=== PATIENT | female | born 1985 | race Two or more races ===

== ENCOUNTER 2017-04-19 05:33 | Emergency (ER) | payer OTHER, MEDICAID ==
[2017-04-19 05:40] VITALS: BP 131/89
--- NOTE | 2017-04-19 06:31 | ED Physician Documentation ---
History of Present Illness - Stated complaint Stated Complaint: L ANKLE PAIN - Chief complaint Chief Complaint: General - History obtained from History obtained from: Patient - History of Present Illness Timing: Yesterday Pain level now: 5 Improved by: rest Worsened by: movement, weight-bearing - Additonal information Additional information: c/o pain left foot and ankle; pain is worst at 1st metatarsal head, dorsal surface of midfoot, and medial>lateral ankle. Denies clearly recallable injury, although she was exercising recently and thinks she might have sustained a minor injury at that time. Denies h/o similar symptoms Review of Systems Constitutional: denies: Fever Skin: denies: Rash Musculoskeletal: reports: Extremity pain, Pain with weight bearing. 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 - Past Surgical History Past Surgical History: Yes General: Appendectomy - Present Medications Home Medications: Ambulatory Orders Medication Instructions Recorded Confirmed No Known Home Medications [No 10/27/12 04/19/17 Known Home Medications] - Allergies Allergies/Adverse Reactions: Allergies Allergy/AdvReac Type Severity Reaction Status Date / Time amoxicillin Allergy Rash Verified 04/19/17 05:39 hydrocodone Allergy Emesis Verified 04/19/17 05:39 - Social History Does the pt smoke?: No Smoking Status: Never smoker Does the pt drink ETOH?: No Does the pt have substance abuse?: No PD ED PE NORMAL - Vitals Vital signs reviewed: Yes - General General: Alert and oriented X 3, No acute distress, Well developed/nourished - Derm Derm: Normal color, Warm and dry, No rash - Extremities Extremities: Normal ROM s pain, No edema - Neuro Neuro: No motor deficit, No sensory deficit PD ED PE EXPANDED - Extremities Extremities: Tenderness (mild tenderness to palpation left foot plantar surface over 1st metatarsal head, as well as dorsal surface of midfoot and bilateral ankle immediately distal to malleoli (but no bony tenderness)). No: Limited ROM , Swelling, Bruising, Joint effusion, Red warm joint Results - Vitals Vitals: Vital Signs - 24 hr 04/19/17 05:37 Temperature 36.6 C Heart Rate 99 Respiratory 18 Rate Blood Pressure 131/89 H O2 Saturation 99 Oxygen O2 Source Room air PD MEDICAL DECISION MAKING - ED course Complexity details: considered differential, d/w patient ED course: no findings to suggest infectious or inflammatory etiology (such as gout; there is no increased warmth to touch, swelling, erythema). There is no obvious swelling. Emergent testing unlikely to yield a diagnosis or alter (conservative ) management recommendation. She is having difficulty weight-bearing, and thus provided crutches and a post-op boot, instructed to take ibuprofen as directed, follow-up with PMD, return if worse Departure - Departure Disposition: 01 Home, Self Care Clinical Impression: Foot pain, left Condition: Good Instructions: ED Sprain Foot Follow-Up: [facility] [Provider Group] [facility] [Provider Group] Discharge Date/Time: 04/19/17 07:54
== END 2017-04-19 07:54 | disposition home or self-care (01) ==
LOC: ED 05:33
DX: M79.672 Pain in left foot (principal)
CPT/HCPCS: 99282; 99283

== ENCOUNTER 2017-06-07 10:18 | Emergency (ER) | payer OTHER, MEDICAID ==
[2017-06-07 10:55] VITALS: BP 130/86
[2017-06-07] MEDS ORDERED: DEXAMETHASONE 10 MG/ML VIAL PO STA (12:04)
--- NOTE | 2017-06-07 12:05 | ED Physician Documentation ---
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 - Past Surgical History Past Surgical History: Yes General: Appendectomy - Present Medications Home Medications: Ambulatory Orders Medication Instructions Recorded Confirmed Azithromycin [Zithromax] 250 mg PO DAILY #6 tablet 06/07/17 - Allergies Allergies/Adverse Reactions: Allergies Allergy/AdvReac Type Severity Reaction Status Date / Time amoxicillin Allergy Rash Verified 04/19/17 05:39 hydrocodone Allergy Emesis Verified 04/19/17 05:39 - Social History Does the pt smoke?: No Smoking Status: Never smoker Does the pt drink ETOH?: No Does the pt have substance abuse?: No - Immunizations Immunizations are current?: No - POLST Patient has POLST: No PD ED PE NORMAL - Vitals Vital signs reviewed: Yes - HEENT HEENT: No: Pharynx benign (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 No: No adenopathy (ant no posterior) - Cardiac Cardiac: RRR - Respiratory Respiratory: No respiratory distress, Clear bilaterally - Neuro Neuro: Alert and oriented X 3 Results - Vitals Vitals: Vital Signs - 24 hr 06/07/17 10:52 Temperature 36.5 C Heart Rate 92 Respiratory 18 Rate Blood Pressure 130/86 H O2 Saturation 98 Oxygen O2 Source Room air - Labs Labs: Laboratory Tests 06/07/17 10:59 Group A Strep Rapid Negative PD MEDICAL DECISION MAKING - ED course ED course: meets centor criteria Departure - Departure Disposition: 01 Home, Self Care Clinical Impression: Pharyngitis Qualifiers: Pharyngitis/tonsillitis etiology: unspecified etiology Qualified Code(s): J02.9 - Acute pharyngitis, unspecified Condition: Good Instructions: ED Strep Pharyngitis Poss Prescriptions: Azithromycin [Zithromax] 250 mg PO DAILY #6 tablet Comments: The steroids given in the ER will help with the pain and swelling And I have prescribed antibiotics because this looks like strep Forms: Activity restrictions
[2017-06-07] MEDS ORDERED: CHERRY SYRUP 10 ML UDC PO ONE (12:16)
== END 2017-06-07 12:24 | disposition home or self-care (01) ==
LOC: ED 10:18
DX: J02.9 Acute pharyngitis, unspecified (principal)
CPT/HCPCS: 87070; 87430; 99283; A9270

== ENCOUNTER 2017-06-18 09:35 | Emergency (ER) | payer OTHER, MEDICAID ==
--- NOTE | 2017-06-18 12:13 | ED Physician Documentation ---
PD HPI HEENT - Stated complaint Stated Complaint: SORE THROAT - Chief complaint Chief Complaint: Heent - History obtained from History obtained from: Patient - History of Present Illness Timing - onset: How many weeks ago (1) Timing - details: Still present Location: Throat Associated symptoms: Cough. No: Fever Similar symptoms before: No: Has not had sx before Recently seen: Emergency Dept (Was seen in the emergency department 11 days ago and was treated with Zithromax for presumed strep throat.) - Additional information Additional information: The patient is a 31-year-old female who presents with sore throat for nearly 2 weeks' duration. She was seen here in the emergency department 11 days ago and was treated with Zithromax for presumed strep throat. Her strep screen was negative, but the swelling and exudates of her oropharynx were clinically impressive. The patient reports that the swelling has diminished since treatment with the antibiotics, but she continues to experience sore throat. She also reports cough. She denies fever or shortness of breath. Review of Systems Constitutional: denies: Fever Eyes: denies: Irritation Ears: denies: Ear pain Nose: denies: Congestion Throat: reports: Sore throat Cardiac: denies: Chest pain / pressure Respiratory: reports: Cough (nonproductive.). 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 - Past Surgical History Past Surgical History: Yes General: Appendectomy - Present Medications Home Medications: Ambulatory Orders Medication Instructions Recorded Confirmed cephALEXin [Cephalexin] 500 mg PO TID #20 tablet 06/18/17 - Allergies Allergies/Adverse Reactions: Allergies Allergy/AdvReac Type Severity Reaction Status Date / Time amoxicillin Allergy Rash Verified 04/19/17 05:39 hydrocodone Allergy Emesis Verified 04/19/17 05:39 - Social History Does the pt smoke?: No Smoking Status: Never smoker Does the pt drink ETOH?: No Does the pt have substance abuse?: No - Immunizations Immunizations are current?: Yes - POLST Patient has POLST: No PD ED PE NORMAL - Vitals Vital signs reviewed: Yes (initially hypertensive.) - General General: Alert and oriented X 3, Well developed/nourished - HEENT HEENT: Atraumatic, EOMI, Ears normal, Moist mucous membranes, Other (Oropharynx is mildly erythematous, without exudates or peritonsillar swelling.) - Neck Neck: Supple, no meningeal sign, No adenopathy - Cardiac Cardiac: RRR, No murmur - Respiratory Respiratory: No respiratory distress, Clear bilaterally - Abdomen Abdomen: Soft, Non tender - Back Back: No CVA TTP - Derm Derm: No rash - Extremities Extremities: No edema, No calf tenderness / cord - Neuro Neuro: Alert and oriented X 3, No motor deficit, No sensory deficit Results - Vitals Vitals: Oxygen O2 Source Room air - Labs Labs: Microbiology 06/18/17 10:10 Group A Strep Throat Culture - Final Throat MIXED OROPHARYNGEAL AMOR PRESENT. NO BETA STREP PRESENT IN CULTURE. Laboratory Tests 06/18/17 06/18/17 10:10 11:40 Infectious [place] Assay NEGATIVE Group A Strep Rapid Negative PD MEDICAL DECISION MAKING - ED course Complexity details: reviewed old records, reviewed results, re-evaluated patient , considered differential, d/w patient, d/w family ED course: The patient's presentation is most consistent with pharyngitis, etiology of which is uncertain. Strep screen is negative, as is Monospot. Her symptoms had initially improved after treatment with Zithromax starting 11 days ago. However she developed recurrent symptoms last night. There is no evidence to suggest peritonsillar abscess. I discussed with her the results of her workup, symptomatic treatment and outpatient follow-up, as well as potentially worrisome signs or symptoms that should prompt reevaluation in the emergency department. She is being discharged with prescription for cephalexin. Departure - Departure Disposition: 01 Home, Self Care Clinical Impression: Pharyngitis Qualifiers: Pharyngitis/tonsillitis etiology: unspecified etiology Qualified Code(s): J02.9 - Acute pharyngitis, unspecified Condition: Stable Instructions: ED Strep Pharyngitis Poss Follow-Up: [facility] [Provider Group] Prescriptions: cephALEXin [Cephalexin] 500 mg PO TID #20 tablet Comments: Gargle with cool liquids. Take cephalexin 3 times daily as prescribed. You can use ibuprofen, up to 800 mg 3 times daily for its anti-inflammatory effect. Follow-up with primary physician within 2 weeks. Call to schedule appointment. Return to the emergency department if you develop increasing difficulty swallowing, or otherwise worsening symptoms. Discharge Date/Time: 06/18/17 12:19
[2017-06-18 12:20] VITALS: BP 130/92
== END 2017-06-18 12:19 | disposition home or self-care (01) ==
LOC: ED 09:35
DX: J02.9 Acute pharyngitis, unspecified (principal)
CPT/HCPCS: 36415; 86308; 87070; 87430; 99283

== ENCOUNTER 2017-06-27 07:49 | Outpatient (CLI) | payer OTHER, MEDICAID ==
[2017-06-27 13:32] LABS: THYROID STIMULATING HORMONE 2.12 uIU/mL (0.34-5.60)
[2017-06-27 14:25] LABS: FOLATE > 49.60 ng/mL (5.90 - >24.8)
[2017-06-27 19:02] LABS: BASOPHILS # (AUTO) 0.1 10^3/uL (0.0-0.1); BASOPHILS % (AUTO) 1.3 %; EOSINOPHILS # (AUTO) 0.4 10^3/uL (0.0-0.7); EOSINOPHILS % (AUTO) 3.2 %; HGB - HEMOGLOBIN 11.4 g/dL (12.0-16.0); LYMPHOCYTES # (AUTO) 2.9 10^3/uL (1.5-3.5); LYMPHOCYTES % (AUTO) 25.9 %; MEAN CORPUSCULAR HEMOGLOBIN 25.6 pg (27.0-31.0); MEAN CORPUSCULAR HGB CONC 32.4 g/dL (32.0-36.0); MEAN CORPUSCULAR VOLUME 78.9 fL (81.0-99.0); MEAN PLATELET VOLUME 8.9 fL (7.9-10.8); MONOCYTES # (AUTO) 0.6 10^3/uL (0.0-1.0); MONOCYTES % (AUTO) 5.8 %; NEUTROPHILS # (AUTO) 7.1 10^3/uL (1.5-6.6); NEUTROPHILS % (AUTO) 63.8 %; PLT - PLATELET COUNT 422 10^3/uL (130-450); RED BLOOD COUNT 4.47 10^6/uL (4.20-5.40); RED CELL DISTRIBUTION WIDTH 14.4 % (12.0-15.0); WHITE BLOOD COUNT 11.1 x10^3/uL (4.8-10.8)
== END 2017-06-27 07:50 | disposition home or self-care (01) ==
LOC: LAB.N 07:49
PROVIDERS: ATTEND Nurse Practitioner
DX: R53.83 Other fatigue (principal)
CPT/HCPCS: 36415; 82607; 82746; 84443; 85025

== ENCOUNTER 2017-07-08 23:37 | Outpatient (CLI) | payer OTHER, MEDICAID ==
[2017-07-08 19:11] LABS: % IRON SATURATION 5 % (20-50); IRON 20 ug/dL (28-170); TOTAL IRON BINDING CAPACITY 378 ug/dL (250-450); TRANSFERRIN 270 mg/dL (192-382)
[2017-07-08 19:16] LABS: MEAN RETIC VALUE 99.5; RED BLOOD COUNT 4.53 10^6/uL (4.20-5.40)
== END 2017-07-08 23:38 | disposition home or self-care (01) ==
LOC: LAB.N 23:37
PROVIDERS: ATTEND Nurse Practitioner
DX: E55.9 Vitamin D deficiency, unspecified (principal); D50.9 Iron deficiency anemia, unspecified
CPT/HCPCS: 36415; 81599; 82306; 82728; 83021; 83540; 84466; 85014; 85018; 85044

== ENCOUNTER 2023-02-18 03:34 | Day surgery (SDC) | payer MEDICAID, OTHER ==
--- NOTE | 2023-02-18 03:37 | ED Physician Documentation ---
PD HPI ABD PAIN - Stated complaint Stated Complaint: ABD PX - History obtained from History obtained from: Patient - History of Present Illness Timing - onset: How many hours ago (12), Yesterday Timing - duration: Hours (12) Timing - details: Gradual onset, Still present (has increased significantly the past 2-3 hours, now with nausea and some vomiting.) Quality: Cramping, Aching, Pain Location: RUQ, Epigastric Radiation: Other (mid abdomen). No: Left flank, Right flank Improved by: Laying still. No: Vomiting Worsened by: Eating, Moving, Breathing, Palpation Associated symptoms: Nausea, Vomiting. No: Fever, Diarrhea, Constipation, D ysuria Similar symptoms before: Has not had sx before Recently seen: Not recently seen Review of Systems Constitutional: denies: Fever, Chills Nose: denies: Congestion Throat: denies: Sore throat Respiratory: denies: Cough GI: reports: Abdominal Pain, Nausea, Vomiting. denies: Abdominal Swelling, Diarrhea Musculoskeletal: denies: Back pain Neurologic: reports: Generalized weakness. 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 - Past Surgical History Past Surgical History: Yes General: Appendectomy - Present Medications Home Medications: Ambulatory Orders Medication Instructions Recorded Confirmed Dicyclomine [Bentyl] 10 mg PO QID PRN #15 cap 02/18/23 Ondansetron Odt [Zofran] 4 mg TL Q6H PRN #10 tablet 02/18/23 Oxycodone HCl/Acetaminophen 1 each PO Q6H PRN #14 tablet 02/18/23 [Percocet 5-325 mg Tablet] - Allergies Allergies/Adverse Reactions: Allergies Allergy/AdvReac Type Severity Reaction Status Date / Time amoxicillin Allergy Rash Verified 02/18/23 03:53 hydrocodone Allergy Emesis Verified 02/18/23 03:53 - Social History Does the pt smoke?: No Smoking Status: Never smoker Does the pt drink ETOH?: No Does the pt have substance abuse?: No - Immunizations Immunizations are current?: Yes - POLST Patient has POLST: No PD ED PE NORMAL - Vitals Vital signs reviewed: Yes - General General: Alert and oriented X 3, Well developed/nourished - Neck Neck: Supple, no meningeal sign, No adenopathy - Cardiac Cardiac: RRR, No murmur - Respiratory Respiratory: No respiratory distress, Clear bilaterally - Abdomen Abdomen: Soft, Non distended, Other (very tender RUQ with guarding and some percussion tenderness. Positive rebound in RUQ and mid abd. ). No: Normal bowel sounds (decreased) - Female Female : Deferred - Rectal Rectal: Deferred - Back Back: No CVA TTP - Derm Derm: Normal color, Warm and dry - Extremities Extremities: Normal ROM s pain, No edema - Neuro Neuro: Alert and oriented X 3, No motor deficit Results - Vitals Vitals: Vital Signs - 24 hr 02/18/23 02/18/23 03:40 06:00 Temperature 36.9 C Heart Rate 91 58 L Respiratory 16 16 Rate Blood Pressure 161/111 H 157/86 H O2 Saturation 99 97 Oxygen O2 Source Room air - Labs Labs: Laboratory Tests 02/18/23 02/18/23 02/18/23 04:02 04:02 04:30 WBC 8.2 RBC 4.65 Hgb 11.6 L Hct 38.0 MCV 81.7 MCH 24.9 L MCHC 30.5 L RDW 13.7 Plt Count 407 MPV 10.5 Neut # (Auto) 4.8 Lymph # (Auto) 2.5 [place] # (Auto) 0.7 Eos # (Auto) 0.2 Baso # (Auto) 0.1 Absolute Nucleated RBC 0.00 Nucleated RBC % 0.0 Sodium Potassium Chloride Carbon Dioxide Anion Gap BUN Creatinine Estimated GFR (MDRD) Glucose Calcium Total Bilirubin AST ALT Alkaline Phosphatase Total Protein Albumin Globulin Albumin/Globulin Ratio Lipase Urine Color YELLOW Urine Clarity CLEAR Urine pH 5.5 Ur Specific Wiggins >=1.030 H Urine Protein NEGATIVE Urine Glucose (UA) NEGATIVE Urine Ketones NEGATIVE Urine Occult Blood SMALL H Urine Nitrite NEGATIVE Urine Bilirubin NEGATIVE Urine Urobilinogen 0.2 (NORMAL) Ur Leukocyte Esterase TRACE H Urine RBC 6-10 H Urine WBC 0-3 Ur Squamous Epith Cells MANY Squamous H Urine Bacteria Rare Ur Microscopic Review INDICATED Urine Culture Comments NOT INDICATED Urine HCG, Qual NEGATIVE 02/18/23 04:30 WBC RBC Hgb Hct MCV MCH MCHC RDW Plt Count MPV Neut # (Auto) Lymph # (Auto) [place] # (Auto) Eos # (Auto) Baso # (Auto) Absolute Nucleated RBC Nucleated RBC % Sodium 138 Potassium 4.2 Chloride 107 Carbon Dioxide 22 Anion Gap 9.0 BUN 15 Creatinine 0.8 Estimated GFR (MDRD) 80 L Glucose 102 Calcium 10.0 Total Bilirubin 0.4 AST 15 ALT 16 Alkaline Phosphatase 73 Total Protein 6.8 Albumin 4.2 Globulin 2.6 Albumin/Globulin Ratio 1.6 Lipase 44 Urine Color Urine Clarity Urine pH Ur Specific [place] Urine Protein Urine Glucose (UA) Urine Ketones Urine Occult Blood Urine Nitrite Urine Bilirubin Urine Urobilinogen Ur Leukocyte Esterase Urine RBC Urine WBC Ur Squamous Epith Cells Urine Bacteria Ur Microscopic Review Urine Culture Comments Urine HCG, Qual - Rads (name of study) abd CT Relevant Findings:: Prelim report reviewed, EMP independent interpretation of test (gallstone large in GB neck with wall thickening and GB distension, c/w acute cholecystitis.) PD Medical Decision Making - ED course Complexity details: reviewed results (To my eye the CT is showing a apparent large gallstone near the neck with some dilation of the gallbladder and possible wall thickening. No pericholecystic fluid. Appendix is absent. No other obvious acute abnormality. CT result is still pending.), considered differential (Onset with gradual worsening to now severe right upper quadrant pain with nausea and vomiting. Location is suspicious for gallbladder. Also consider pancreatic or liver. Less likely kidney related like stone.), d/w patient ED course: The patient had a first-time episode of right upper quadrant severe pain associated with nausea and vomiting. She was markedly tender in the right upper quadrant with guarding and percussion tenderness. She is given IV fluids along with medications to include Zofran, Toradol, hydromorphone. This did provide a reasonable improvement in her pain. She is more comfortable at this time. Subsequently while awaiting labs and imaging, the pain did start increasing a bit again. She is given a repeat dose of hydromorphone. Labs are good with a normal white count and her LFTs and lipase are normal. Basic electrolytes are normal as well. Recheck of the abdomen was showing still tenderness in the right upper quadrant but at this point now no percussion or rebound. Still some local guarding. At this point were awaiting the radiology report for verification. Her pain is improved enough that it may be medication and follow-up with surgery. However based on the report we can talk with one of the surgeons in discuss follow-up versus evaluation here. I wrote discharge instructions in case it went that way, but certainly may be an acute cholecystitis with surgical option. Departure - Departure Clinical Impression: RUQ abdominal pain, Biliary colic, Acute cholecystitis Condition: Stable Record reviewed to determine appropriate education?: Yes Instructions: ED Gallstone W Biliary Colic Follow-Up: Mayank Hart MD [Provider Admit Priv/Credential] - Colby Sullivan MD [Provider Admit Priv/Credential] - Prescriptions: Dicyclomine [Bentyl] 10 mg PO QID PRN #15 cap PRN Reason: Abdominal Pain Oxycodone HCl/Acetaminophen [Percocet 5-325 mg Tablet] 1 each PO Q6H PRN #14 tablet PRN Reason: pain Ondansetron Odt [Zofran] 4 mg TL Q6H PRN #10 tablet PRN Reason: Nausea / Vomiting Comments: This does look apparently caused by gallstone with gallbladder spasm and some inflammation. Small frequent fluids and bland food and nonfatty foods. Follow-up with general surgery to discuss further treatment options. I provided to have the surgery clinic offices and either are reasonable to follow-up with. I wrote prescriptions for ondansetron to use for nausea. Dicyclomine/Bentyl as an antispasmodic that can be used to help with gallbladder spasms as well. Add Tylenol if needed for pains and oxycodone if needed for worse pain. I sent these prescriptions to your preferred pharmacy, [facility]. Return to the ER as needed. I am prescribing a short course of narcotic pain medication for you. These are potentially dangerous and addictive medications that should be used carefully. These medications may constipate you. Take an [id number] stool softener such as docusate twice daily with plenty of water while taking these medications. If you go 24 hours without a bowel movement, take [id number] MiraLAX, per package instructions. Do not drink or drive while taking these medications. If you received narcotic or sedating medications while in the emergency department do not drive for 24 hours. Store this medication in a safe, secure place and out of reach of children. It is a violation of federal law to give or sell this medication to another person or to use in a manner other than prescribed. The ED will not refill narcotic prescriptions, including prescriptions lost or stolen. You can dispose of unwanted medications at the [facility]'s office or at several pharmacies such as [facility].
[2023-02-18 04:08] LABS: BILIRUBIN,URINE NEGATIVE (NEGATIVE); GLUCOSE, URINE (UA) NEGATIVE (NEGATIVE); KETONES,URINE (UA) NEGATIVE (NEGATIVE); LEUKOCYTE ESTERASE, URINE TRACE (NEGATIVE); NITRITE,URINE NEGATIVE (NEGATIVE); OCCULT BLOOD,URINE SMALL (NEGATIVE); PH,URINE 5.5 PH (5.0-7.5); PROTEIN,URINE NEGATIVE (NEGATIVE); UROBILINOGEN,URINE 0.2 (NORMAL) E.U./dL (NORMAL)
[2023-02-18] MEDS ORDERED: ONDANSETRON 4 MG/2 ML VIAL IVP STA (04:11)
[2023-02-18] MEDS ORDERED: KETOROLAC 15 MG/ML VIAL IVP STA (04:11)
[2023-02-18] MEDS ORDERED: HYDROmorphone 1 MG/ML CARPUJECT IVP STA ×2 (04:11→06:49)
[2023-02-18] MEDS ORDERED: SODIUM CHLORIDE 0.9% 1,000 ML IV STA (04:11)
[2023-02-18 04:22] LABS: CLARITY,URINE CLEAR (CLEAR); HCG UR QUAL NEGATIVE; SQUAMOUS EPITHELIAL CELL,UR MANY Squamous (<= Few); WBC,URINE 0-3 /HPF (0-5)
[2023-02-18 04:23] LABS: BACTERIA,URINE Rare /HPF (None Seen)
[2023-02-18 05:02] LABS: BASOPHILS # (AUTO) 0.1 10^3/uL (0.0-0.1); BASOPHILS % (AUTO) 0.9 %; EOSINOPHILS # (AUTO) 0.2 10^3/uL (0.0-0.7); HGB - HEMOGLOBIN 11.6 g/dL (12.0-16.0); LYMPHOCYTES # (AUTO) 2.5 10^3/uL (1.5-3.5); MEAN CORPUSCULAR HEMOGLOBIN 24.9 pg (27.0-31.0); MEAN CORPUSCULAR HGB CONC 30.5 g/dL (32.0-36.0); MEAN CORPUSCULAR VOLUME 81.7 fL (81.0-99.0); MEAN PLATELET VOLUME 10.5 fL (7.9-10.8); MONOCYTES # (AUTO) 0.7 10^3/uL (0.0-1.0); MONOCYTES % (AUTO) 7.9 %; NEUTROPHILS # (AUTO) 4.8 10^3/uL (1.5-6.6); NEUTROPHILS % (AUTO) 58.7 %; PLT - PLATELET COUNT 407 10^3/uL (130-450); RED BLOOD COUNT 4.65 10^6/uL (4.20-5.40); RED CELL DISTRIBUTION WIDTH 13.7 % (12.0-15.0); WHITE BLOOD COUNT 8.2 x10^3/uL (4.8-10.8)
[2023-02-18 05:28] LABS: ALBUMIN 4.2 g/dL (3.2-5.5)
[2023-02-18 05:55] LABS: ALBUMIN/GLOBULIN RATIO 1.6 (1.0-2.2); BILIRUBIN,TOTAL 0.4 mg/dL (0.2-1.0); CREATININE 0.8 mg/dL (0.6-1.3); POTASSIUM 4.2 mmol/L (3.5-4.5); TOTAL PROTEIN 6.8 g/dL (6.4-8.9)
[2023-02-18] MEDS ORDERED: iohexoL-300 100 ML VIAL IVP ONE (06:31)
--- NOTE | 2023-02-18 08:20 | CT Report ---
PROCEDURE: ABDOMEN/PELVIS W INDICATIONS: upper abd pain past 12 hours. CONTRAST: 100 ML OMNI 300 TECHNIQUE: After the administration of IV contrast, 5 mm thick sections acquired from the diaphragms to the symp hysis. 5 mm thick coronal and sagittal reformats were acquired. For radiation dose reduction, the f ollowing was used: automated exposure control, adjustment of mA and/or kV according to patient size. COMPARISON: None. FINDINGS: Image quality: Excellent. Lung bases and heart: Bibasilar atelectasis. Liver: Moderately enlarged. Moderate hepatic steatosis. No solid mass. Gallbladder and biliary tree: There is a gallstone in the gallbladder. There is mild pericholecystic stranding. No biliary dilation. Spleen: No splenomegaly. Pancreas: No pancreatic ductal dilation. Adrenals: No adrenal nodule. Kidneys and ureters: No hydronephrosis. No renal cystic lesion which requires follow up. No solid mas s. Bowel and peritoneum: No bowel distension. No pathologic free fluid. The terminal ileum appears mildl y thickened, likely caused by artifact due to lack of contrast distention. Appendix is not identified . No CT findings to suggest acute appendicitis. There is a moderate amount stool in colon. Lymph nodes: No central or retroperitoneal adenopathy. Vessels: No infrarenal aortic aneurysm. PELVIS Reproductive organs: There is a 3.7 x 4.7 cm mass in the right adnexa containing fat and calcificatio n, compatible with teratoma. Uterus and left ovary are unremarkable no pathological free fluid in pel vis. Bladder: No abnormal wall thickening, accounting for underdistension. Pelvic lymph nodes: No pelvic adenopathy by size criteria. Bones: No aggressive osseous abnormality. Other: No significant ventral or inguinal hernia. IMPRESSION: 1. Cholelithiasis. There is mild pericholecystic stranding, suspicious for acute cholecystitis. Recom mend abdominal ultrasound or HIDA scan for further evaluation. 2. Mild hepatomegaly and moderate steatosis. 3. A 3.7 x 4.7 cm ovarian mass in the right ovary containing fat and calcification, compatible with a teratoma. Reviewed by: Scott Horton MD on 02/18/2023 8:18 AM PST Approved by: Scott Horton MD on 02/18/2023 8:18 AM PST Station ID: [id number]
--- NOTE | 2023-02-18 08:28 | Ultrasound Report ---
PROCEDURE: Abdomen Limited INDICATIONS: RUQ PAIN/POSS GENARO TECHNIQUE: Real-time focused scanning was performed of the abdomen, with image documentation. COMPARISONS: CT of abdomen and pelvis, 02/18/2023. FINDINGS: Liver: Liver is normal in size and demonstrates increased echotexture. Portal vein is patent with h epatopedal flow. Gallbladder: There is a gallstone measuring 2 cm in the gallbladder neck. Mild gallbladder wall thick ening. No pericholecystic collection or sonographic Tierney sign. Biliary ducts: Intrahepatic bile ducts are non-dilated. Extrahepatic bile duct caliber measures 6 m m. Normal is 6-7 mm or less in diameter, or 10 mm or less post-cholecystectomy. Pancreas: Visualized portions of the pancreas are sonographically normal. Right kidney: Normal in size and echotexture. Right kidney measures 9.8 cm long. No hydronephrosis o r nephrolithiasis. No solid masses. No complex renal cystic lesions which require follow-up. Aorta: Visualized aorta is normal in caliber at less than 3 cm. IVC: Intrahepatic inferior vena cava is patent. Miscellaneous: No free abdominal fluid. IMPRESSION: 1. Cholelithiasis. There is mild gallbladder wall thickening suspicious for early acute cholecystitis . 2. Liver demonstrates increased echotexture consistent with hepatic fatty infiltration. Other hepatoc ellular disease could have a similar sonographic appearance. Please correlate with liver function tran ts. Reviewed by: Scott Horton MD on 02/18/2023 8:27 AM PST Approved by: Scott Horton MD on 02/18/2023 8:27 AM PST Station ID: [id number]
[2023-02-18] MEDS ORDERED: cefTRIAXone 2 GM in SODIUM CHLORIDE 0.9% MINIBAG 100 ML IV STA (08:47)
[2023-02-18] MEDS ORDERED: metroNIDAZOLE 500 MG/100 ML 500 MG/100 ML BAG IV SCH ×2 (09:00→11:00)
[2023-02-18] MEDS ORDERED: ONDANSETRON 4 MG/2 ML VIAL IVP PRN ×3 (10:29→14:54)
--- NOTE | 2023-02-18 10:31 | ED Physician Documentation ---
ED Addendum - Addendum Addendum: 02/18/23 10:29 Care of patient signed out to me by overnight Dr. Miranda. Patient reassessed, resting comfortably, pain control, however she did receive numerous doses of narcotic pain medications. CT is concerning for cholecystitis. Call placed to Dr. Sullivan of general surgery, who requested an ultrasound for further assessment. Ultrasound performed, findings concerning for possible acute cholecystitis. Dr. Sullivan requested PO challenge with clear fluids as with normal labs and reassuring abdominal exam this could possibly be biliary colic amenable to outpatient removal. Patient did agree to p.o. challenge, however after less than half a cup of apple juice her pain returned and she felt very nauseous. Decision made to take patient to the operating room for cholecystectomy. Rocephin/flagyl ordered.
[2023-02-18] MEDS ORDERED: ceFAZolin 2 GM VIAL IVP SCH (11:00)
[2023-02-18] MEDS ORDERED: SODIUM CHLORIDE 0.9% 1,000 ML IV SCH (11:00)
--- NOTE | 2023-02-18 11:19 | HISTORY & PHYSICAL EXAMINATION ---
History and Physical - History and Physical Paper H&P on chart 37 y/o F with acute onset of epigastric discomfort, nausea after eating pizza yesterday. Patient awoke from sleep with severe upper abdominal pain in a band like distribution at 0200, prompting her to come to the ED. +nausea, no vomiting. No f/c. No history of similar pain. Was feeling somewhat better this AM, but nausea and pain increased with PO trial. CT, sono equivocal, with mild wall thickening, no PCF, no impacted stone labs wnl Gen: NAD CV: RRR Pulm: non labored, on RA abd: obese, soft, diffuse, mild ttp, moderate epigastric tenderness with deep palpation. No r/g. Ext: no c/c/e Given patient's worsened symptoms after PO trial, I recommended we proceed with surgery. I discussed the natural history of acute cholecystitis with the patient. We also discussed the risks, benefits, and alternatives of laparoscopic cholecystectomy with cholangiogram and possible open procedure. We discussed surgical risks including bleeding, infection, and damage to surrounding structures. We also discussed the intraoperative and postoperative plan including the possible need for drain placement and possibility of an open procedure. The patient voiced understanding, her questions were answered, and she wished to proceed with surgery. A consent was signed by the patient. - npo until after surgery - preop meds, abx ordered (will do test dose with ancef) - likely discharge to home later today.
[2023-02-18] MEDS ORDERED: LIDOCAINE 1%-EPI 1:100000 20 ML MDV ONE (12:00)
[2023-02-18] MEDS ORDERED: iohexoL-240 10 ML VIAL IVP ONE (12:01)
[2023-02-18] MEDS ORDERED: BUPIVACAINE 0.5% PF 10 ML VIAL ONE (12:01)
--- NOTE | 2023-02-18 12:23 | ANESTHESIA ---
Pre-Anesthesia VS, & Labs - Diagnosis acute cholecystitis - Procedure laparoscopic cholecystectomy Vital Signs: Temp Pulse Resp BP Pulse Ox O2 Flow Rate 36.7 C 83 14 138/87 H 98 02/18/23 10:00 02/18/23 10:00 02/18/23 10:00 02/18/23 10:00 02/18/23 10:00 Height: 5 ft 6 in Weight (kg): 104.326 kg Body Mass Index: 37.1 BMI Classification: Obese - NPO Last Fluid Intake: 2oz apple juice@0930 Last Food Intake: >12 hours - Is Patient ?: No - Lab Results Current Lab Results: Laboratory Tests 02/18/23 04:30: Sodium 138, Potassium 4.2, Chloride 107, Carbon Dioxide 22, Anion Gap 9.0, BUN 15, Creatinine 0.8, Estimated GFR (MDRD) 80 L, Glucose 102, Calcium 10.0, Total Bilirubin 0.4, AST 15, ALT 16, Alkaline Phosphatase 73, Total Protein 6.8, Albumin 4.2, Globulin 2.6, Albumin/Globulin Ratio 1.6, Lipase 44 02/18/23 04:30: WBC 8.2, RBC 4.65, Hgb 11.6 L, Hct 38.0, MCV 81.7, MCH 24.9 L, MCHC 30.5 L, RDW 13.7, Plt Count 407, MPV 10.5, Neut # (Auto) 4.8, Lymph # (Auto) 2.5, Blount # (Auto) 0.7, Eos # (Auto) 0.2, Baso # (Auto) 0.1, Absolute Nucleated RBC 0.00, Nucleated RBC % 0.0 Lab results reviewed: Yes Fish Bones: 02/18/23 04:30 02/18/23 04:30 Home Medications and Allergies Active Medications Cefazolin Sodium (Cefazolin 2 Gm Vial) 2 gm IVP ONCE BAKARI Stop: 02/18/23 14:00 Sodium Chloride (Normal Saline 0.9%) 1,000 mls @ 125 mls/hr IV .Q8H BAKARI Last Admin: 02/18/23 10:37 Dose: 125 mls/hr Metronidazole (Flagyl 500 Mg/100 Ml) 500 mg in 100 mls @ 100 mls/hr IV ONCE BAKARI Stop: 02/18/23 14:00 Last Infusion: 02/18/23 11:47 Dose: Infused Ondansetron HCl (Ondansetron 4 Mg/2 Ml Vial) 4 mg IVP Q6HR PRN PRN Reason: Nausea / Vomiting Allergies/Adverse Reactions: Allergies Allergy/AdvReac Type Severity Reaction Status Date / Time amoxicillin Allergy Rash Verified 02/18/23 03:53 hydrocodone Allergy Emesis Verified 02/18/23 03:53 Anes History & Medical History - Anesthetic History Anesthesia Complications: reports: No previous complications, Slow wake-up (with appendectomy and oopherectomy) Family history of Anesthesia Complications: Denies Family history of Malignant Hyperthermia: Denies - Medical History Cardiovascular: reports: None Pulmonary: reports: Asthma (rare albuterol inhaler use, no daily inhaler) Gastrointestinal: reports: Other (r upper quad adb pain, current) Neuro: reports: None Endocrine/Autoimmune: reports: None Smoking Status: Never smoker Psychosocial: reports: No issues indicated, Alcohol (rare) - Surgical History General: reports: Appendectomy Eyes Ears Nose Throat (EENT): reports: Tonsil/Adenoidectomy Gynecologic: reports: Oophrectomy Exam General: Alert, Oriented x3, Cooperative Dental: WNL Mouth Opening: Greater than 4 Fingerbreadths Neck Mobility: Normal Mallampati classification: I Thyromental Distance: 4-6 cm Respiratory: Lungs clear, Normal breath sounds, No respiratory distress Cardiovascular: Regular rate Neurological: Normal speech Mental/Cognitive Status: Alert/Oriented X3, Normal for patient Cognitive Status: Within normal limits Plan Anesthesia Type: General Consent for Procedure(s) Verified and Reviewed: Yes Code Status: Attempt Resuscitation ASA classification: 2-Mild systemic disease Is this case an emergency?: Yes
[2023-02-18] MEDS ORDERED: METOCLOPRAMIDE 10 MG/2 ML VIAL IVP PRN (12:24)
[2023-02-18] MEDS ORDERED: HYDROmorphone 0.5 MG/0.5 ML SYRINGE IVP PRN ×2 (12:24→14:54)
[2023-02-18] MEDS ORDERED: ePHEDrine 50 MG/ML VIAL IVP PRN (12:24)
[2023-02-18] MEDS ORDERED: ATROPINE ABBOJECT 1 MG/10 ML SYRINGE IVP PRN (12:24)
[2023-02-18] MEDS ORDERED: NALOXONE 0.4 MG/ML VIAL IVP PRN (12:24)
[2023-02-18] MEDS ORDERED: MORPHINE 2 MG/ML CARPUJECT IVP PRN (12:24)
[2023-02-18] MEDS ORDERED: fentaNYL 100 MCG/2 ML VIAL IVP PRN (12:24)
[2023-02-18] MEDS ORDERED: fentaNYL 100 MCG/2 ML VIAL ONE ×2 (12:42→13:59)
[2023-02-18] MEDS ORDERED: MIDAZOLAM 2 MG/2 ML VIAL ONE (12:42)
[2023-02-18] MEDS ORDERED: ROCURONIUM 50 MG/5 ML VIAL ONE (12:43)
[2023-02-18] MEDS ORDERED: LIDOCAINE-PF 2% 10 ML AMP SUBQ ONE (12:43)
[2023-02-18] MEDS ORDERED: PROPOFOL 200 MG/20 ML VIAL IVP ONE ×2 (12:43→14:59)
[2023-02-18] MEDS ORDERED: LACTATED RINGERS 1,000 ML IV SCH (13:00)
[2023-02-18] MEDS ORDERED: LIDOCAINE 1%-EPI 1:100000 20 ML MDV SUBQ ONE (13:13)
[2023-02-18] MEDS ORDERED: BUPIVACAINE 0.5% PF 10 ML VIAL IM ONE (13:13)
[2023-02-18] MEDS ORDERED: ceFAZolin 1 GM VIAL ONE (13:25)
[2023-02-18] MEDS ORDERED: DEXAMETHASONE 4 MG/ML VIAL ONE (13:33)
[2023-02-18] MEDS ORDERED: ONDANSETRON 4 MG/2 ML VIAL ONE ×2 (13:33→15:44)
[2023-02-18] MEDS ORDERED: metroNIDAZOLE 500 MG/100 ML 500 MG/100 ML BAG ONE (13:53)
[2023-02-18] MEDS ORDERED: SUGAMMADEX 200 MG/2 ML VIAL IVP ONE (14:47)
[2023-02-18] MEDS ORDERED: KETOROLAC 30 MG/ML VIAL ONE (14:48)
[2023-02-18] MEDS ORDERED: ACETAMINOPHEN 325 MG TABLET PO PRN (14:54)
[2023-02-18] MEDS ORDERED: oxyCODONE 5 MG TABLET PO PRN (14:54)
--- NOTE | 2023-02-18 14:58 | OPERATIVE REPORT ---
Operative Report - General Procedure Date: 02/18/23 Planned Procedure: Laparoscopic cholecystectomy with cholangiogram, possible open Pre-Op Diagnosis: Acute cholecystitis Procedure Performed: Laparoscopic cholecystectomy with Attempted cholangiogram Post Op Diagnosis: Cholelithiasis, early acute cholecystitis - Procedure Note Primary Surgeon: Dr. Norah Sullivan Anesthesia Provider: Oralia Ambriz CRNA Anesthesia Technique: General ET tube, Local Pathology: Gallbladder and contents Estimated Blood Loss (mL): 20 Indications: Patient has had about 6 hours of continuous right upper quadrant abdominal pain. Her labs are within normal limits, and her imaging is equivocal. On exam, she has some mild persistent right upper quadrant and epigastric pain. On p.o. challenge, her pain worsened. At this time we discussed cholecystectomy. I discussed the natural history of acute cholecystitis with the patient. We also discussed the risks, benefits, and alternatives of laparoscopic cholecystectomy with cholangiogram and possible open procedure. We discussed surgical risks including bleeding, infection, and damage to surrounding structures. We also discussed the intraoperative and postoperative plan including the possible need for drain placement and possibility of an open procedure. The patient voiced understanding, her questions were answered, and she wished to proceed with surgery. A consent was signed by the patient. Findings: 1.Normal anatomy 2. Cholelithiasis 3. Early acute cholecystitis Complications: None - Other Other Information/Narrative: The patient was brought to the operative suite and placed in the supine position. General endotracheal anesthesia was induced. Preoperative antibiotics were given. ERAS protocol was not followed due to patient's nausea. A preop surgical timeout was performed. Local anesthetic was injected into the skin and subcutaneous tissues just superior to the umbilicus. An 11 blade scalpel was used to make a 5 mm transverse skin incision in this location. Next, a hemostat was used to spread the tissues down to the level of the fascia and a Leonid clamp was used to grasp and elevate the umbilical stalk. A Varess needle was used to gain access to the peritoneal space. Low flow insufflation revealed low pressures and then high flow insufflation was undertaken to 15 mmHg. Next, the Varess needle was removed and a 5 mm laparoscopic port was inserted in this location. Through this port, a 5 mm 30 degree laparoscope was inserted. On inspection of the abdomen no injury was caused on entry. Next, the patient was placed in reverse Trendelenburg and rotated slightly to the left. Two 5 mm ports were inserted in the right upper quadrant, one in the anterior axillary line and the other in the midclavicular line. Also, a 12 mm port was inserted in the subxiphoid region. All ports were placed by first anesthetizing the skin and subcutaneous tissues with local anesthetic, then by making an appropriate length incision with an 11 blade scalpel, and finally by placing the port under direct laparoscopic vision. Once the ports were in place, a ratcheted, toothed grasper was used to elevate the fundus of the gallbladder toward the patient's right shoulder. There were loose adhesions in the right upper quadrant between the omentum and the gallbladder. These were taken down with blunt and sharp dissection with electrocautery. Next, the peritoneum was incised starting at the hilum of the gallbladder and working toward the fundus along the gallbladder liver interface on the medial and lateral aspects of the gallbladder. Next, attention was returned to the hilum of the gallbladder. The alveolar tissues in this region were taken down with blunt and sharp dissection with electrocautery taking great care not to cauterize though any tissue I could not easily see through. Two ductal structures were isolated and skeletonized such that each ductal structure could be visualized with liver present on either side. The cystic plate was also developed. At this time, it was felt that a critical view of safety had been obtained. Next, a clip was placed distally, that is toward the gallbladder, on the cystic duct and just proximal to this a ductotomy was performed. Multiple attempts were made to pass A cholangiogram catheter into the duct. However the duct was too small to do so, even with attempts using a smaller catheter. At this time, due to the fact that the patient had normal labs preoperatively, and normal anatomy intraoperatively, I elected to abandon the cholangiogram. Two clips were placed proximally on the cystic duct. The cystic duct and cystic artery were divided using laparoscopic scissors between the clips. Next the gallbladder was dissected off of the liver bed. Once it was completely freed, the gallbladder was placed in an Endo Catch bag and removed through the epigastric port. The epigastric port was replaced and suction and irrigation were used to remove any fluid from the right upper quadrant. This was done until the fluid returned was clear. Next, quarter percent Marcaine with epinephrine in the amount of 10 mL was infused into the right upper quadrant along the liver diaphragm interface to reduce to postoperative pain. Next, a laparoscopic fascial closure device was used to place a single interrupted 0 Vicryl suture at the epigastric port. This reapproximated the fascia well. The remaining ports were removed under direct laparoscopic vision and the abdomen was deflated. Next, the skin edges were reapproximated with 4-0 Monocryl in an interrupted subcuticular fashion. A sterile dressing of skin glue was placed. The patient tolerated the procedure well. The patient was extubated in the operating room and transferred to the recovery room in stable condition. There were no complications.
[2023-02-18] MEDS ORDERED: IBUPROFEN 600 MG TABLET PO SCH (15:00)
[2023-02-18] MEDS ORDERED: LACTATED RINGERS 1,000 ML IV ONE (15:22)
[2023-02-18 15:35] VITALS: O2SAT 94
[2023-02-18] MEDS ORDERED: ACETAMINOPHEN 325 MG TABLET PO ONE (16:30)
[2023-02-18 16:31] VITALS: BP 146/96
--- NOTE | 2023-02-18 16:35 | ANESTHESIA POST OP EVALUATION ---
Anesthesia Post Eval - Post Anesthesia Eval Vitals: Last Vital Signs Temp 36.0 C L 02/18/23 16:15 Pulse 83 02/18/23 16:15 Resp 16 02/18/23 16:15 BP 146/96 H 02/18/23 16:15 Pulse Ox 94 02/18/23 16:15 O2 Flow Rate CV Function Including HR & BP: Stable Pain Control: Satisfactory Nausea & Vomiting: Negative Mental Status: Baseline Respiratory Status: Airway Patent Hydration Status: Satisfactory Anesthesia Complications: None
== END 2023-02-18 10:35 | disposition home or self-care (01) ==
LOC: ED 03:34 → SDS 10:34
PROVIDERS: ATTEND Surgery
PROC: 0FT44ZZ Resection of Gallbladder, Percutaneous Endoscopic Approach (ICD-10-PCS; principal; 2023-02-18 14:15)
DX: K80.00 Calculus of gallbladder with acute cholecystitis without obstruction (principal); K80.12 Calculus of gallbladder with acute and chronic cholecystitis without obstruction; E66.9 Obesity, unspecified; Z68.37 Body mass index [BMI] 37.0-37.9, adult; J45.909 Unspecified asthma, uncomplicated
CPT/HCPCS: 36415; 47562; 74177; 76705; 80053; 81001; 81025; 83690; 85025; 96365; 96375; 96376; 99285; A9270; C1758; J1170; J7120; Q9966; Q9967; 81003; 87086

== ENCOUNTER 2023-11-28 08:21 | Outpatient (CLI) | payer MEDICAID ==
[2023-11-28 12:17] LABS: BASOPHILS # (AUTO) 0.1 10^3/uL (0.0-0.1); BASOPHILS % (AUTO) 0.7 %; EOSINOPHILS # (AUTO) 0.2 10^3/uL (0.0-0.7); EOSINOPHILS % (AUTO) 2.2 %; HCT - HEMATOCRIT 40.3 % (37.0-47.0); HGB - HEMOGLOBIN 12.9 g/dL (12.0-16.0); LYMPHOCYTES # (AUTO) 2.2 10^3/uL (1.5-3.5); LYMPHOCYTES % (AUTO) 25.6 %; MEAN CORPUSCULAR HEMOGLOBIN 27.3 pg (27.0-31.0); MEAN CORPUSCULAR VOLUME 85.4 fL (81.0-99.0); MEAN PLATELET VOLUME 11.1 fL (7.9-10.8); MONOCYTES # (AUTO) 0.5 10^3/uL (0.0-1.0); MONOCYTES % (AUTO) 6.2 %; NEUTROPHILS # (AUTO) 5.6 10^3/uL (1.5-6.6); NEUTROPHILS % (AUTO) 65.2 %; PLT - PLATELET COUNT 427 10^3/uL (130-450); RED BLOOD COUNT 4.72 10^6/uL (4.20-5.40); RED CELL DISTRIBUTION WIDTH 13.3 % (12.0-15.0); WHITE BLOOD COUNT 8.6 x10^3/uL (4.8-10.8)
[2023-11-28 12:51] LABS: ALBUMIN 4.2 g/dL (3.2-5.5); ALBUMIN/GLOBULIN RATIO 1.3 (1.0-2.2); ALKALINE PHOSPHATASE 59 IU/L (42-121); ALT ALANINE AMINOTRANSFERASE 11 IU/L (10-60); AST ASPARTATE AMINOTRANSFERASE 11 IU/L (10-42); BILIRUBIN,TOTAL 0.7 mg/dL (0.2-1.0); BUN - BLOOD UREA NITROGEN 11 mg/dL (6-20); CALCIUM 9.1 mg/dL (8.5-10.3); CARBON DIOXIDE - CO2 21 mmol/L (21-32); CHLORIDE 110 mmol/L (101-111); CHOL/HDL RATIO 4.2 (<4.4); CHOLESTEROL 154 mg/dL; CREATININE 0.7 mg/dL (0.6-1.3); GFR - MDRD 93 (>89); GLUCOSE 106 mg/dL (74-104); HDL CHOLESTEROL 37 mg/dL; LDL CHOLESTEROL,CALCULATED 100 mg/dL; LDL/HDL RATIO 2.7 (<4.4); POTASSIUM 4.3 mmol/L (3.5-4.5); SODIUM 136 mmol/L (135-145); TOTAL PROTEIN 7.5 g/dL (6.4-8.9); TRIGLYCERIDES 87 mg/dL; VLDL CHOLESTEROL 17 mg/dL
== END 2023-11-28 08:22 | disposition home or self-care (01) ==
LOC: LAB.N 08:21
PROVIDERS: ATTEND Physician Assistant
DX: R03.0 Elevated blood-pressure reading, without diagnosis of hypertension (principal); Z13.220 Encounter for screening for lipoid disorders
CPT/HCPCS: 36415; 80053; 80061; 83721; 84443; 85025

== ENCOUNTER 2023-12-05 08:45 | Outpatient (CLI) | payer MEDICAID ==
--- NOTE | 2023-12-06 08:01 | Mammography Report ---
BILATERAL DIGITAL SCREENING MAMMOGRAM 3D/2D: 12/05/2023 CLINICAL: Baseline exam. Routine screening. No prior exams were available for comparison. Both breasts are heterogeneously dense, which may obscure small masses (category c / 51-75% glandular tissue). No significant masses, calcifications, or other findings are seen in either breast. IMPRESSION: NEGATIVE There is no mammographic evidence of malignancy. A 1 year screening mammogram is recommended. Based on the Tyrer Cuzick model (a risk assessment model) the patient's lifetime risk is 15.1% and he r 10 year risk is 1.9%. According to the ACR, ACS, and NCCN guidelines, an annual breast MRI exam allyson ng with mammogram is recommended if the patient's lifetime risk is 20% or greater. This exam was interpreted at Station ID: [id number]. NOTE: For mammograms, a report in lay terms will be sent to the patient. Approximately 15% of breast malignancies will not be visualized mammographically. In the management of a palpable breast mass, a negative mammogram must not discourage biopsy of a clinically suspicious lesion. Electronically Signed By: Raad Barnes M.D. [facility] [place]:12/05/2023 12:32:54 letter sent: No_Letter ACR BI-RADS Category 1: Negative 3341F PARENCHYMAL PATTERN: (D) - The breast(s) demonstrate(s) heterogeneously dense fibroglandular parenchy ma. BI-RADS CATEGORY: (1) - 1 RECOMMENDATION: (ANNUAL) - Recommend routine annual screening mammography. [id number] 1 year screening LATERALITY: (B)
== END 2023-12-05 08:46 | disposition home or self-care (01) ==
LOC: DI.N 08:45
DX: Z12.31 Encounter for screening mammogram for malignant neoplasm of breast (principal); R92.333 Mammographic heterogeneous density, bilateral breasts